=== PATIENT | male | born 1990 | race Caucasian/White ===

== ENCOUNTER → 2023-11-14 13:21 | Outpatient (REF) | payer OTHER, SELFPAY | LOC: MRI 3T 13:21 | PROVIDERS: ATTENDING PHYSICIAN Orthopaedic Surgery Hand Surgery; FAMILY PHYSICIAN Family Medicine | DX: M25.511 Pain in right shoulder (principal) | CPT/HCPCS: 23350; 73040; 73222 ==

== ENCOUNTER 2024-01-02 06:17 | Day surgery (SDC) | payer OTHER, SELFPAY ==
[2024-01-02] VITALS (8 sets, daily range): BP systolic 114–135; BP diastolic 67–80; BMI 26.5
[2024-01-02] MEDS: CELEBREX 200 MG PO (08:32)
[2024-01-02] MEDS: TYLENOL 1000 MG PO (08:32)
[2024-01-02] MEDS: NORMOSOL-R 1000 IV (08:33)
--- NOTE | 2024-01-02 08:40 | PTCARENOTE ---
Halima in the OR notified that patient is allergic to Nickel. Will monitor patient.
== END 2024-01-02 14:08 | disposition home or self-care (01) ==
LOC: SDS 06:17
PROVIDERS: ATTENDING PHYSICIAN Orthopaedic Surgery Hand Surgery
DX: S43.431A Superior glenoid labrum lesion of right shoulder, initial encounter (principal); X58.XXXA Exposure to other specified factors, initial encounter
CPT/HCPCS: 29807